=== PATIENT | male | born 1990 | race African-American/Black ===

== ENCOUNTER 2019-01-10 12:29 | Day surgery (SDC) | payer OTHER ==
[2019-01-10] MEDS: LACTATED RINGER'S 1,000 ML IV (13:54)
[2019-01-10] MEDS: BUPIVACAINE LIPOSOME/PF 266 MG/20 ML VIAL INFIL (15:38)
[2019-01-10] MEDS ORDERED: POLYMYXIN/BACITRACIN 1L IRRIG (15:59)
[2019-01-10] MEDS ORDERED: ROCURONIUM 50 MG INJ (16:25)
[2019-01-10] MEDS ORDERED: MIDAZOLAM 1 MG/ML 2 ML INJ ×3 (16:25)
[2019-01-10] MEDS ORDERED: PROPOFOL 200 MG INJ (16:25)
[2019-01-10] MEDS ORDERED: HYDROmorphONE 2 MG/ML SYG (16:25)
[2019-01-10] MEDS ORDERED: SUGAMMADEX SODIUM 200 MG/2 ML VIAL IV (16:25)
[2019-01-10] MEDS ORDERED: ONDANSETRON 4 MG INJ (16:25)
[2019-01-10] MEDS ORDERED: LIDOCAINE 1% (MDV) 20 ML INJ (16:25)
[2019-01-10] MEDS ORDERED: FENTAnyl 50 MCG/ML VIAL (16:25)
[2019-01-10] MEDS ORDERED: DESFLURANE 15 MIN (16:25)
[2019-01-10] MEDS ORDERED: CEFAZOLIN 1 GM INJ (16:25)
[2019-01-10] MEDS ORDERED: ACETAMINOPHEN 325 MG TAB PO (16:30)
[2019-01-10] MEDS ORDERED: morphine 2 MG INJ IV (16:30)
[2019-01-10] MEDS ORDERED: ONDANSETRON 4 MG INJ IV (16:30)
[2019-01-10] MEDS: GENTAMICIN 80 MG INJ (16:48)
[2019-01-10] MEDS: BUPIVACAINE 0.25%/EPI (SDV) 10 ML INJ (16:48)
[2019-01-10] MEDS: POLYMYXIN/BACITRACIN 1L IRRIG IRR (16:48)
[2019-01-10] MEDS ORDERED: MEPERIDINE 25 MG INJ IV (19:00)
[2019-01-10] MEDS ORDERED: FENTAnyl 50 MCG/ML VIAL IV ×2 (19:00)
[2019-01-10] MEDS ORDERED: HYDROmorphONE 1 MG/5 ML IV SYRINGE IV ×2 (19:00)
[2019-01-10] MEDS ORDERED: ACETAMINOPHEN 1000MG/100ML IV 100 ML (19:09)
[2019-01-10] MEDS: ACETAMINOPHEN 1000MG/100ML IV 100 ML IVPB (19:10)
[2019-01-10] MEDS: ONDANSETRON 4 MG INJ IV (20:03)
[2019-01-10] MEDS: HYDROCODONE/APAP (5/325) TAB PO (20:04)
== END 2019-01-10 20:25 | disposition home or self-care (01) ==
LOC: SDS 12:29
DX: F64.9 Gender identity disorder, unspecified (principal)
CPT/HCPCS: 19325